=== PATIENT | male | born 2000 | race Caucasian/White ===

== ENCOUNTER 2025-03-07 19:12 | Observation (INO) ==
[2025-03-07] MEDS: ONDANSETRON INJ 2 MG/ML 2 ML VIAL IV STA ×2 (19:38→23:27)
[2025-03-07] MEDS: SODIUM CHLORIDE 0.9% 1,000 ML IV STA (19:38)
--- NOTE | 2025-03-07 19:42 | Emergency Department Note ---
Impression & Plan Right ureteral stone, Right lower quadrant abdominal pain, DRE (acute kidney injury) ED Provider Note NAME: CHRISTINA LEÓN AGE: 24 SEX: M : 2000 ARRIVES VIA: Walk-In INFORMANT: Patient, ED PROVIDER(S): Adria Leonardo DO CHIEF COMPLAINT: Abdominal pain HPI: The patient is a 24-year-old male who presents to the emergency room for CAT scan of his abdomen. Patient started having right-sided abdominal pain over the last 24 hours. He does have a history of ureteral calculus in the past. The patient denies having any vomiting. He said nausea. He went to an urgent care and was sent to the department for CAT scan. ROS: See above HPI for pertinent positives & negatives. A total of 10 systems reviewed and were otherwise negative. PAST MEDICAL HISTORY: See Below PAST SURGICAL HISTORY: See Below FAMILY HISTORY: See Below SOCIAL HISTORY: See Below HOME MEDICATIONS: See Below ALLERGIES: See Below VITALS: See Below PHYSICAL EXAMINATION: GENERAL: Patient is awake alert in no acute distress patient is resting comfortably and showing no signs of anxiety EYES: The conjunctivae are clear. The pupils are round and reactive. EARS, NOSE, MOUTH AND THROAT: The nose is without any evidence of any deformity. Mucous membranes are moist. Tongue is midline. NECK: The neck is nontender and supple. RESPIRATORY: Normal respiratory effort is noted there is no evidence of wheezing rhonchi or rales CARDIOVASCULAR: Regular rate and rhythm noted there no murmurs rubs or gallops normal S1 normal S2. GASTROINTESTINAL: The abdomen is distended. There is diffuse tenderness to palpation with guarding in the right lower quadrant. MUSCULOSKELETAL/EXTREMITIES: There is no evidence of gross deformity full range of motion is noted in the hips and shoulders. SKIN: There is no obvious evidence of any rash. There are no petechiae, pallor or cyanosis noted. NEUROLOGIC: Patient is awake alert and oriented x3 MEDICAL DECISION MAKING: The patient is a 24-year-old male who presented to the emergency department for an evaluation of right-sided abdominal pain. The patient was recently diagnosed with a kidney stone. He was pain-free until today. He went to an urgent care and was sent to the emergency department with concerns of appendicitis. I discussed patient's laboratory and radiographic studies with him. CT showed signs of a distal ureteral calculus which I suspect is causing his pain. He was treated with multiple rounds of pain medication but still had ongoing pain. For this reason I would discussed his condition with the on-call hospitalist. The patient's urinalysis does not appear to be consistent with infection. Laboratory studies otherwise were reassuring. Triage Nursing notes reviewed. Prior medical records reviewed Vital Signs: reviewed and remarkable for elevate blood pressure. Differential diagnosis: Etiologies such as appendicitis, diverticulitis, obstruction, inflammatory bowel disease, renal colic, PUD, biliary pathology, pancreatitis, mesenteric ischemia, aortic pathology, infections, genitourinary, UTI, perforated viscus, as well as others were entertained. ER treatment provided: See below Diagnostics interpreted by me: ECG: none Cardiac Monitoring: An order was placed for continuous cardiac monitoring. The monitor shows a rate of 80 bpm with sinus rhythm. Laboratory studies: As stated above and show below. Imaging studies: See below. Radiographic imaging was reviewed by myself Consultation(s): Dr. Medrano who is on-call for the [facility] hospitalist group was notified about the patient. Past Med/Surg History Problem List (Updated 03/07/25 @ 23:21 by Adria Leonardo DO) DRE (acute kidney injury) (Acute) Right lower quadrant abdominal pain (Acute) Right ureteral stone (Acute) Social History Smoking Status: Never smoker Feels Safe at Home: Yes Allergies Allergies Allergy/AdvReac Type Severity Reaction Status Date / Time amoxicillin Allergy Mild Verified 03/06/25 11:05 Home Meds Home Medications Medication Instructions Recorded Confirmed bupropion HCl 75 mg tablet 75 mg PO TID 03/06/25 03/06/25 lisdexamfetamine 40 mg capsule 40 mg PO DAILY 03/06/25 03/06/25 (Vyvanse) sertraline 200 mg capsule 200 mg PO DAILY 03/06/25 03/06/25 Results & Data (ED) Vital Signs Vital Signs - 24 hr 03/07/25 19:18 03/07/25 19:32 03/07/25 19:33 Temperature 36.7 C Temperature Source Oral Pulse Rate 91 H Pulse Rate [Right Finger] 83 Pulse Rate from SpO2 Sensor Pulse Rhythm [Right Finger] Regular Pulse Strength [Right Finger] Normal Respiratory Rate 16 18 Respiratory Effort / Characteristics Non-Labored Spontaneous Non-Labored Respiratory Depth Normal Normal Respiratory Pattern Regular Regular Blood Pressure 169/110 H Blood Pressure [Left Arm] 172/118 H Blood Pressure Mean 129 Blood Pressure Mean [Left Arm] 136 Blood Pressure Position [Left Arm] Sitting Pulse Oximetry 96 98 96 Oxygen Delivery Method Room Air Room Air Room Air Sepsis Recent Fever Within 48 Hours No Sepsis New/Unexplained Change in Mental Status N/A Sepsis Action Taken by Nursing No Action Required 03/07/25 20:01 03/07/25 20:30 03/07/25 21:00 Temperature Temperature Source Pulse Rate 80 84 70 Pulse Rate [Right Finger] Pulse Rate from SpO2 Sensor 85 69 Pulse Rhythm [Right Finger] Pulse Strength [Right Finger] Respiratory Rate 19 13 Respiratory Effort / Characteristics Respiratory Depth Respiratory Pattern Blood Pressure 169/116 H 196/116 H Blood Pressure [Left Arm] Blood Pressure Mean 141 142 Blood Pressure Mean [Left Arm] Blood Pressure Position [Left Arm] Pulse Oximetry 96 97 Oxygen Delivery Method Sepsis Recent Fever Within 48 Hours Sepsis New/Unexplained Change in Mental Status Sepsis Action Taken by Nursing 03/07/25 21:24 03/07/25 21:33 03/07/25 22:00 Temperature Temperature Source Pulse Rate 72 86 Pulse Rate [Right Finger] 89 Pulse Rate from SpO2 Sensor 72 86 Pulse Rhythm [Right Finger] Regular Pulse Strength [Right Finger] Respiratory Rate 18 16 15 Respiratory Effort / Characteristics Respiratory Depth Normal Respiratory Pattern Blood Pressure 170/105 H 149/91 H Blood Pressure [Left Arm] 170/105 H Blood Pressure Mean 126 108 Blood Pressure Mean [Left Arm] 126 Blood Pressure Position [Left Arm] Pulse Oximetry 96 97 96 Oxygen Delivery Method Room Air Sepsis Recent Fever Within 48 Hours Sepsis New/Unexplained Change in Mental Status Sepsis Action Taken by Nursing 03/07/25 22:03 Temperature Temperature Source Pulse Rate 80 Pulse Rate [Right Finger] Pulse Rate from SpO2 Sensor 76 Pulse Rhythm [Right Finger] Pulse Strength [Right Finger] Respiratory Rate 15 Respiratory Effort / Characteristics Respiratory Depth Respiratory Pattern Blood Pressure 149/91 H Blood Pressure [Left Arm] Blood Pressure Mean 110 Blood Pressure Mean [Left Arm] Blood Pressure Position [Left Arm] Pulse Oximetry 97 Oxygen Delivery Method Sepsis Recent Fever Within 48 Hours Sepsis New/Unexplained Change in Mental Status Sepsis Action Taken by [facility] Medications Current Medication List: was personally reviewed by me Laboratory Data Attestation: I reviewed the patient's lab results. 03/07/25 19:33 03/07/25 19:33 Lab Results 03/07/25 Range/Units 19:33 WBC 9.75 (4.8-10.8) K/ul RBC 5.19 (4.70-6.10) M/uL Hgb 15.9 (14.0-18.0) g/dl Hct 45.5 (42.0-52.0) % MCV 87.7 (80.0-100.0) fL MCH 30.6 (25.0-34.0) pg MCHC 34.9 (32.0-36.0) g/dL RDW Std Deviation 38.1 (36.4-46.3) fL RDW Coeff of Leanne 11.9 (11.5-14.5) % Plt Count 228 (130-400) K/uL MPV 11.3 (9.4-12.4) fL Immature Gran % (Auto) 0.2 % Neut % (Auto) 78.2 % Lymph % (Auto) 9.7 % [place] % (Auto) 10.5 % Eos % (Auto) 1.1 % Baso % (Auto) 0.3 % Neut # (Auto) 7.62 H (1.40-6.50) K/uL Lymph # (Auto) 0.95 L (1.20-3.40) K/uL [place] # (Auto) 1.02 H (0.11-0.59) K/uL Eos # (Auto) 0.11 (0.00-0.50) K/uL Baso # (Auto) 0.03 (0.00-0.20) K/uL Immature Gran # (Auto) 0.02 (0.01-0.20) K/uL Sodium 139 (136-145) mmol/L Potassium 3.9 (3.5-5.1) mmol/L Chloride 103 (98-107) mmol/L Carbon Dioxide 26 (21-32) mmol/L Anion Gap 10 (3-11) BUN 18 (6-23) mg/dl Creatinine 1.58 H (0.6-1.4) mg/dl Est Cr Clr Drug Dosing 88.8 ml/min eGFR 62.64 BUN/Creatinine Ratio 11.4 (10-20) Glucose 112 H (70-99(Fasting)) mg/dl Calcium 9.7 (8.6-10.3) mg/dl Total Bilirubin 0.7 (0.2-1.0) mg/dl AST 31 (13-39) U/L ALT 38 (7-52) U/L Alkaline Phosphatase 73 (34-104) U/L Total Protein 8.4 H (6.0-8.3) gm/dl Albumin 5.2 H (3.4-5.0) gm/dl Globulin 3.2 (2.5-4.0) gm/dl Albumin/Globulin Ratio 1.6 (0.9-2) Lipase 19 (11-82) U/L Urine Color Yellow Urine Appearance Clear (Clear) Urine pH 7.0 (4.5-7.5) Ur Specific [place] 1.023 (1.000-1.030) Urine Protein Negative (Negative) Urine Glucose (UA) Negative (Negative) Urine Ketones Negative (Negative) Urine Blood Negative (Negative) Urine Nitrite Negative (Negative) Urine Bilirubin Negative (Negative) Urine Urobilinogen Negative (Negative) Ur Leukocyte Esterase Negative (Negative) Urine Comment Administered Medications Discontinued Medications Sodium Chloride (Nss) 1,000 mls @ 999 mls/hr IV .Q1H1M STA Stop: 03/07/25 20:32 Last Infusion: 03/07/25 21:02 Dose: Infused Documented By: Admin: 03/07/25 19:38 Dose: 999 mls/hr Documented By: MILLI [facility] 1,000 mg in 100 mls @ 400 mls/hr IV NOW STA Stop: 03/07/25 20:00 Last Infusion: 03/07/25 20:30 Dose: Infused Documented By: Admin: 03/07/25 19:50 Dose: 400 mls/hr Documented By: MILLI Ioversol (Optiray 320 100ml) 90 ml IV ONCE ONE Stop: 03/07/25 20:17 Last Admin: 03/07/25 20:16 Dose: 90 ml Documented By: SUSAN Morphine Sulfate (Morphine Sulfate 4 Mg/Ml 1 Ml Carp\Vial) 4 mg IV NOW STA Stop: 03/07/25 19:47 Last Admin: 03/07/25 19:50 Dose: 4 mg Documented By: MILLI Morphine Sulfate (Morphine Sulfate 4 Mg/Ml 1 Ml Carp\Vial) 4 mg IV NOW STA Stop: 03/07/25 21:27 Last Admin: 03/07/25 21:31 Dose: 4 mg Documented By: CADENCE Ondansetron HCl (Ondansetron Inj 2 Mg/Ml 2 Ml Vial) 4 mg IV NOW STA Stop: 03/07/25 19:33 Last Admin: 03/07/25 19:38 Dose: 4 mg Documented By: MILLI Imaging Data Attestation: I personally reviewed and interpreted this imaging study as follows: My Impression: CT of the abdomen and pelvis was obtained in the emergency department. My interpretation is no free air or signs of definite bowel obstruction, final report below. Radiologist's Impression: Abdomen/Pelvis CT 03/07/25 19:32 Exam(s): CT ABDOMEN + PELVIS With Contrast IV Amt: 90 cc opti 320 EXAM: CT Abdomen and Pelvis With Intravenous Contrast CLINICAL HISTORY: Reason for exam: RLQ pain. TECHNIQUE: Axial computed tomography images of the abdomen and pelvis with intravenous contrast. CTDI is 27 mGy and DLP is 1544 mGy-cm. Automated exposure control was utilized for the study. A dose lowering technique was utilized adhering to the principles of ALARA. CONTRAST: Patient received 90 cc opti 320 of IV contrast COMPARISON: CT abdomen/pelvis on 02/20/2025 FINDINGS: Lung bases: Unremarkable. No mass. No consolidation. ABDOMEN: Liver: Unremarkable. No mass. Gallbladder and bile ducts: Unremarkable. No calcified stones. No ductal dilation. Pancreas: Unremarkable. No mass. No ductal dilation. Spleen: Mild splenomegaly. Adrenals: Unremarkable. No mass. Kidneys and ureters: 3 mm stone in the distal right ureter. Mild right hydroureteronephrosis. Hypoenhancement of the right kidney. Excreting contrast in the left renal collecting system. No hydronephrosis. Stomach and bowel: Evaluation of the stomach is limited by underdistention. No mucosal thickening. PELVIS: Appendix: Normal appendix. Bladder: Unremarkable. No mass. Reproductive: Unremarkable as visualized. ABDOMEN and PELVIS: Intraperitoneal space: Unremarkable. No free air. No significant fluid collection. Bones/joints: No acute fracture. No dislocation. Soft tissues: Bilateral fat containing inguinal hernias. Small fat containing umbilical hernia. Vasculature: Unremarkable. No abdominal aortic aneurysm. Lymph nodes: Unremarkable. No enlarged lymph nodes. IMPRESSION: 3 mm stone in the distal right ureter. Mild right hydroureteronephrosis. Hypoenhancement of the right kidney. Electronically signed by: Jesus Willoughby M.D. 03/07/25 23:12 PM Discharge Plan Visit Data Chief Complaint: Abdominal Pain Stated Complaint: RT LOWER ABD PAIN ED Provider: Adria Leonardo Discharge Problem: Right ureteral stone, Right lower quadrant abdominal pain, DRE (acute kidney injury) Patient Disposition: Being Evaluated by Hospitalist Condition: Good Forms Stand Alone Forms: [employer] Prescriptions Prescriptions: No Action sertraline 200 mg capsule 200 mg PO DAILY bupropion HCl 75 mg tablet 75 mg PO TID Rx Instructions: administer 6 hours apart lisdexamfetamine [Vyvanse] 40 mg capsule 40 mg PO DAILY Referrals Referrals: PCP,NO [Primary Care Provider] -
[2025-03-07 19:48] LABS: Hematocrit (blood only) 45.5 % (42.0-52.0); Hemoglobin 15.9 g/dl (14.0-18.0); Immature Granulocytes # (auto) 0.02 K/uL (0.01-0.20); Immature Granulocytes % (auto) 0.2 %; Mean Corpuscular Hemoglobin 30.6 pg (25.0-34.0); Mean Corpuscular Volume 87.7 fL (80.0-100.0); Platelet Count 228 K/uL (130-400); RDW Standard Deviation 38.1 fL (36.4-46.3); Red Blood Count 5.19 M/uL (4.70-6.10); White Blood Count 9.75 K/ul (4.8-10.8)
[2025-03-07] MEDS: ACETAMINOPHEN 1,000 MG/100 ML VIAL IV STA (19:50)
[2025-03-07] MEDS: MoRPHine SULFATE 4 MG/ML 1 ML CARP\\VIAL IV STA ×3 (19:50→23:26)
[2025-03-07 19:51] LABS: Appearance Urine Clear (Clear); Glucose Urine UA Negative (Negative)
[2025-03-07 20:04] LABS: Alanine Aminotransferase 38.0 U/L (7-52); Albumin Globulin Ratio 1.6 (0.9-2); Alkaline Phosphatase 73.0 U/L (34-104); Anion Gap 10.0 (3-11); Bilirubin,Total 0.7 mg/dl (0.2-1.0); Blood Urea Nitrogen 18.0 mg/dl (6-23); Calcium 9.7 mg/dl (8.6-10.3); Carbon Dioxide 26.0 mmol/L (21-32); Chloride 103.0 mmol/L (98-107); Creatinine Clr Calc Pharmacy 88.8 ml/min; Globulin 3.2 gm/dl (2.5-4.0); Glucose 112.0 mg/dl (70-99(Fasting)); Lipase 19.0 U/L (11-82); Potassium 3.9 mmol/L (3.5-5.1); Sodium 139.0 mmol/L (136-145); Total Protein 8.4 gm/dl (6.0-8.3)
[2025-03-07] MEDS: OPTIRAY 320 100ml IV ONE (20:16)
--- NOTE | 2025-03-07 23:13 | CT Scan Report ---
Exam(s): CT ABDOMEN + PELVIS With Contrast IV Amt: 90 cc opti 320 EXAM: CT Abdomen and Pelvis With Intravenous Contrast CLINICAL HISTORY: Reason for exam: RLQ pain. TECHNIQUE: Axial computed tomography images of the abdomen and pelvis with intravenous contrast. CTDI is 27 mGy and DLP is 1544 mGy-cm. Automated exposure control was utilized for the study. A dose lowering technique was utilized adhering to the principles of ALARA. CONTRAST: Patient received 90 cc opti 320 of IV contrast COMPARISON: CT abdomen/pelvis on 02/20/2025 FINDINGS: Lung bases: Unremarkable. No mass. No consolidation. ABDOMEN: Liver: Unremarkable. No mass. Gallbladder and bile ducts: Unremarkable. No calcified stones. No ductal dilation. Pancreas: Unremarkable. No mass. No ductal dilation. Spleen: Mild splenomegaly. Adrenals: Unremarkable. No mass. Kidneys and ureters: 3 mm stone in the distal right ureter. Mild right hydroureteronephrosis. Hypoenhancement of the right kidney. Excreting contrast in the left renal collecting system. No hydronephrosis. Stomach and bowel: Evaluation of the stomach is limited by underdistention. No mucosal thickening. PELVIS: Appendix: Normal appendix. Bladder: Unremarkable. No mass. Reproductive: Unremarkable as visualized. ABDOMEN and PELVIS: Intraperitoneal space: Unremarkable. No free air. No significant fluid collection. Bones/joints: No acute fracture. No dislocation. Soft tissues: Bilateral fat containing inguinal hernias. Small fat containing umbilical hernia. Vasculature: Unremarkable. No abdominal aortic aneurysm. Lymph nodes: Unremarkable. No enlarged lymph nodes. IMPRESSION: 3 mm stone in the distal right ureter. Mild right hydroureteronephrosis. Hypoenhancement of the right kidney. Electronically signed by: Jesus Willoughby M.D. 03/07/25 23:12 PM
[2025-03-07] MEDS: KETOROLAC TROMETHAMINE 15 MG/ML VIAL IV ONE (23:26)
--- NOTE | 2025-03-07 23:39 | History & Physical Report ---
Date of Service March 07, 2025 Assessment & Plan (1) Right ureteral stone: (2) DRE (acute kidney injury): (3) Anxiety and depression: (4) Elevated blood pressure reading: Plan 24yo male presenting with right sided abdominal pain. Found with obstructing stone in the right distal ureter - 3mm with hydroureteronephrosis. Elevated Cr=1.58, unknown baseline #Right ureteral stone -Admit to medical -Keep NPO -LR at 125mL/hr x 2L ordered -Flomax 0.4mg po now and daily -Urine strainer -Tylenol and Morphine PRN pain -Zofran PRN nausea -PRN bowel regimen in place -Urology consultation appreciated #DRE - patient with elevated Cr=1.58, unknown baseline. -Avoid nephrotoxic agents -LR -Repeat chemistry in AM -Should be followed as an outpatient - patient reports that his blood pressure is high outpatient as well #Anxiety/Depression/Mental Health -Continue home medications - Bupropion, Vyvanse and Sertraline #Elevated blood pressure reading -Pain control as above -Continue to monitor History of Present Illness Chief Complaint: right abdominal pain Primary Care Provider: NO PCP Josh Correia is a pleasant 24yo male with history of elevated blood pressure presenting with right sided abdominal pain. Patient initially presented to [facility] 2 weeks ago with right sided abdominal pain. He was diagnosed with a kidney stone and was ultimately discharged with pain medication and Flomax. He reports taking these medications - symptoms largely resolved but he would occasionally experience some intermittent discomfort. Last night he developed more severe pain in the right lower abdomen and mid ab domen. Pain constant. Intermittent nausea. Some sweats as well. Denies fever, chest pain, cough, SOB. Normal urination now with no difficulty. No additional complaints at this time. In the ER he is afebrile, HD stable ER Course: NSS Zofran Morphine Tylenol Allergies Allergy/AdvReac Type Severity Reaction Status Date / Time amoxicillin Allergy Mild Verified 03/06/25 11:05 Home Medications Medication Instructions Recorded Confirmed Type bupropion HCl 75 mg tablet 75 mg PO TID 03/06/25 03/07/25 History lisdexamfetamine 40 mg capsule 40 mg PO DAILY 03/06/25 03/07/25 History (Vyvanse) sertraline 200 mg capsule 200 mg PO DAILY 03/06/25 03/07/25 History Past Med/Surg History Problem List (Updated 03/07/25 @ 23:58 by Bonnie Medrano DO) Elevated blood pressure reading Anxiety and depression DRE (acute kidney injury) (Acute) Right lower quadrant abdominal pain (Acute) Right ureteral stone (Acute) Social History Smoking Status: Never smoker Feels Safe at Home: Yes Review of Systems Review of Systems: All systems reviewed & are unremarkable except as noted in HPI & below Physical Exam Physical Exam: General: patient resting comfortably, NAD, non-toxic in appearance, AA&O x 4 Skin: warm, dry, intact, no rashes or lesions HEENT: NC/AT, PERRL, EOMI, anicteric sclera, conjunctiva without injection, external ear normal to inspection and nontender, nares patent, moist mucus membranes, dentition intact, no oropharyngeal lesions, neck supple, trachea midline, no LAD, no thyromegaly, no JVD Heart: +S1/S2, regular, no m/r/g Lungs: equal air entry bilaterally, no rales/rhonchi/wheezes Abd: +BS, soft, NT/ND, no masses/organomegaly/ascites, comfortable after receiving pain medication Ext: warm, 2+ pulses in UE/LE bilaterally, no clubbing/cyanosis or edema Neuro: nonfocal, patient AA&O x 4, speech intact, no facial droop, moving all extremities on command with equal strength 5/5 Results & Data Results & Data Vital Signs (Past 12 Hours) Vital Signs Temp Pulse Pulse Resp BP BP Pulse Ox 03/07/25 23:00 74 18 150/117 H 95 03/07/25 22:03 80 15 149/91 H 97 03/07/25 22:00 86 15 149/91 H 96 03/07/25 21:33 89 16 170/105 H 97 03/07/25 21:24 72 18 170/105 H 96 03/07/25 21:00 70 13 196/116 H 97 03/07/25 20:30 84 19 169/116 H 96 03/07/25 20:01 80 03/07/25 19:33 83 18 172/118 H 96 03/07/25 19:32 98 03/07/25 19:18 36.7 C 91 H 16 169/110 H 96 O2 Del Method 03/07/25 23:00 Room Air 03/07/25 22:03 03/07/25 22:00 03/07/25 21:33 Room Air 03/07/25 21:24 03/07/25 21:00 03/07/25 20:30 03/07/25 20:01 03/07/25 19:33 Room Air 03/07/25 19:32 Room Air 03/07/25 19:18 Room Air Laboratory Results Laboratory Results WBC 9.75 K/ul (4.8-10.8) 03/07/25 19:33 RBC 5.19 M/uL (4.70-6.10) 03/07/25 19:33 Hgb 15.9 g/dl (14.0-18.0) 03/07/25 19:33 Hct 45.5 % (42.0-52.0) 03/07/25 19:33 MCV 87.7 fL (80.0-100.0) 03/07/25 19:33 MCH 30.6 pg (25.0-34.0) 03/07/25 19:33 MCHC 34.9 g/dL (32.0-36.0) 03/07/25 19:33 RDW Std Deviation 38.1 fL (36.4-46.3) 03/07/25 19:33 RDW Coeff of Leanne 11.9 % (11.5-14.5) 03/07/25 19:33 Plt Count 228 K/uL (130-400) 03/07/25 19:33 MPV 11.3 fL (9.4-12.4) 03/07/25 19:33 Immature Gran % (Auto) 0.2 % 03/07/25 19:33 Neut % (Auto) 78.2 % 03/07/25 19:33 Lymph % (Auto) 9.7 % 03/07/25 19:33 [place] % (Auto) 10.5 % 03/07/25 19:33 Eos % (Auto) 1.1 % 03/07/25 19:33 Baso % (Auto) 0.3 % 03/07/25 19:33 Neut # (Auto) 7.62 K/uL (1.40-6.50) H 03/07/25 19:33 Lymph # (Auto) 0.95 K/uL (1.20-3.40) L 03/07/25 19:33 [place] # (Auto) 1.02 K/uL (0.11-0.59) H 03/07/25 19:33 Eos # (Auto) 0.11 K/uL (0.00-0.50) 03/07/25 19:33 Baso # (Auto) 0.03 K/uL (0.00-0.20) 03/07/25 19:33 Immature Gran # (Auto) 0.02 K/uL (0.01-0.20) 03/07/25 19:33 Sodium 139 mmol/L (136-145) 03/07/25 19:33 Potassium 3.9 mmol/L (3.5-5.1) 03/07/25 19:33 Chloride 103 mmol/L (98-107) 03/07/25 19:33 Carbon Dioxide 26 mmol/L (21-32) 03/07/25 19:33 Anion Gap 10 (3-11) 03/07/25 19:33 BUN 18 mg/dl (6-23) 03/07/25 19:33 Creatinine 1.58 mg/dl (0.6-1.4) H 03/07/25 19:33 Est Cr Clr Drug Dosing 88.8 ml/min 03/07/25 19:33 eGFR 62.64 03/07/25 19:33 BUN/Creatinine Ratio 11.4 (10-20) 03/07/25 19:33 Glucose 112 mg/dl (70-99(Fasting)) H 03/07/25 19:33 Calcium 9.7 mg/dl (8.6-10.3) 03/07/25 19:33 Total Bilirubin 0.7 mg/dl (0.2-1.0) 03/07/25 19:33 AST 31 U/L (13-39) 03/07/25 19:33 ALT 38 U/L (7-52) 03/07/25 19:33 Alkaline Phosphatase 73 U/L (34-104) 03/07/25 19:33 Total Protein 8.4 gm/dl (6.0-8.3) H 03/07/25 19:33 Albumin 5.2 gm/dl (3.4-5.0) H 03/07/25 19:33 Globulin 3.2 gm/dl (2.5-4.0) 03/07/25 19:33 Albumin/Globulin Ratio 1.6 (0.9-2) 03/07/25 19:33 Lipase 19 U/L (11-82) 03/07/25 19:33 Urine Color Yellow 03/07/25 19:33 Urine Appearance Clear (Clear) 03/07/25 19:33 Urine pH 7.0 (4.5-7.5) 03/07/25 19:33 Ur Specific [place] 1.023 (1.000-1.030) 03/07/25 19:33 Urine Protein Negative (Negative) 03/07/25 19:33 Urine Glucose (UA) Negative (Negative) 03/07/25 19:33 Urine Ketones Negative (Negative) 03/07/25 19:33 Urine Blood Negative (Negative) 03/07/25 19:33 Urine Nitrite Negative (Negative) 03/07/25 19:33 Urine Bilirubin Negative (Negative) 03/07/25 19:33 Urine Urobilinogen Negative (Negative) 03/07/25 19:33 Ur Leukocyte Esterase Negative (Negative) 03/07/25 19:33 Urine Comment 03/07/25 19:33 Impressions Abdomen/Pelvis CT 03/07/25 19:32 Exam(s): CT ABDOMEN + PELVIS With Contrast IV Amt: 90 cc opti 320 EXAM: CT Abdomen and Pelvis With Intravenous Contrast CLINICAL HISTORY: Reason for exam: RLQ pain. TECHNIQUE: Axial computed tomography images of the abdomen and pelvis with intravenous contrast. CTDI is 27 mGy and DLP is 1544 mGy-cm. Automated exposure control was utilized for the study. A dose lowering technique was utilized adhering to the principles of ALARA. CONTRAST: Patient received 90 cc opti 320 of IV contrast COMPARISON: CT abdomen/pelvis on 02/20/2025 FINDINGS: Lung bases: Unremarkable. No mass. No consolidation. ABDOMEN: Liver: Unremarkable. No mass. Gallbladder and bile ducts: Unremarkable. No calcified stones. No ductal dilation. Pancreas: Unremarkable. No mass. No ductal dilation. Spleen: Mild splenomegaly. Adrenals: Unremarkable. No mass. Kidneys and ureters: 3 mm stone in the distal right ureter. Mild right hydroureteronephrosis. Hypoenhancement of the right kidney. Excreting contrast in the left renal collecting system. No hydronephrosis. Stomach and bowel: Evaluation of the stomach is limited by underdistention. No mucosal thickening. PELVIS: Appendix: Normal appendix. Bladder: Unremarkable. No mass. Reproductive: Unremarkable as visualized. ABDOMEN and PELVIS: Intraperitoneal space: Unremarkable. No free air. No significant fluid collection. Bones/joints: No acute fracture. No dislocation. Soft tissues: Bilateral fat containing inguinal hernias. Small fat containing umbilical hernia. Vasculature: Unremarkable. No abdominal aortic aneurysm. Lymph nodes: Unremarkable. No enlarged lymph nodes. IMPRESSION: 3 mm stone in the distal right ureter. Mild right hydroureteronephrosis. Hypoenhancement of the right kidney. Electronically signed by: Jesus Willoughby M.D. 03/07/25 23:12 PM PG Care Time/CCT Total # of Minutes Spent Total Time Spent with Patient: Total time spent is greater than 50% in coordination of care (as documented) at patient's floor/unit and/or counseling patient: Coding Level of Care Code 39410 INT INP/OBS CARE 3/75MIN Diagnoses Right ureteral stone N20.1 DRE (acute kidney injury) N17.9 Anxiety and depression F41.9; F32.A Elevated blood pressure reading R03.0
[2025-03-08] MEDS ORDERED: DOCUSATE SODIUM 100 MG CAP PO PRN (00:17)
[2025-03-08] MEDS ORDERED: POLYETHYLENE (MIRALAX) 17 GM PACK PO PRN (00:17)
[2025-03-08] MEDS ORDERED: ONDANSETRON INJ 2 MG/ML 2 ML VIAL IV PRN (00:17)
[2025-03-08] MEDS ORDERED: MoRPHine SULFATE 2 MG/ML CARP IV PRN (00:17)
[2025-03-08] MEDS: LACTATED RINGER'S 1,000 ML IV SCH ×2 (00:49→15:59)
[2025-03-08] MEDS: TAMSULOSIN HCL 0.4 MG CAP PO ONE (00:50)
--- NOTE | 2025-03-08 01:01 | Urology Consultation ---
Date of Consultation March 08, 2025 Assessment & Plan (1) Right ureteral stone: The patient has been admitted on the hospitalist service. From a urologic perspective we recommend the following: It appears that the patient has a 3 mm kidney stone in the distal right ureter. Analgesics to be provided Antiemetics to be provided He should be hydrated IV fluids Flomax has been initiated for expulsive therapy Hopefully kidney stone 3 mm in size will pass on its own particularly since it is in the distal ureter. Will keep the patient n.p.o. for the present time and he will be reevaluated by [facility] team on 03/08/2025 and a determination be made if patient requires cystoscopy At the time my exam the patient was normotensive without tachycardia or fever and was nontoxic-appearing and therefore I feel conservative measures are warranted at this time Additional recommendations be forthcoming based on his clinical course as unfolds History of Present Illness Reason for Consultation: Kidney stone Attending Physician: Bonnie Medrano, History of Present Illness This is a 24-year-old male who presented to the emergency department secondary to right-sided abdominal pain. Patient says that he was seen at the [facility] approximately 2 weeks ago with right sided abdominal pain where he was diagnosed with a kidney stone and ultimately discharged with Flomax and analgesics. Patient says that his symptoms for the most part resolved but he was having some intermittent discomfort. Over the past 24 hours however the patient developed some more severe pain in the right lower abdomen with some intermittent nausea and some sweats. He denies any fevers, shakes, or chills. He notes that he is not having any difficulty urinating. He notes that he has never had a kidney stone prior to this kidney stone. Since arrival to the hospital the patient has had labs and imaging which I indep endently reviewed. CT scan of the abdomen pelvis showed the patient had a 3 oh millimeter kidney stone in the distal right ureter resulting in mild hydronephrosis. Labs including CBC were white blood cell count, hemoglobin, hematocrit, and platelet count were normal. Chemistry profile showed sodium and potassium were normal. His BUN was normal but his creatinine was slightly elevated at 1.5. Urinalysis was not indicative of infection. At the time of my interview the patient notes that his pain had subsided and he is resting comfortably in bed in no distress. Allergies Allergy/AdvReac Type Severity Reaction Status Date / Time amoxicillin Allergy Mild Verified 03/06/25 11:05 Home Medications Medication Instructions Recorded Confirmed Type bupropion HCl 75 mg tablet 75 mg PO TID 03/06/25 03/07/25 History lisdexamfetamine 40 mg capsule 40 mg PO DAILY 03/06/25 03/07/25 History (Shaun) sertraline 200 mg capsule 200 mg PO DAILY 03/06/25 03/07/25 History Patient History Social History Smoking Status: Never smoker Do You Dip or Chew Tobacco: No; Hx Alcohol Use: Yes Alcohol type: beer Hx Substance Use: Yes Last Used Substance: Days (ago) Preferred Language: Setswana Communication Ability: 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 Beliefs That Will Affect Care: None Current Living Situation: Alone Feels Safe at Home: Yes Safety Concerns: Feels Safe At This Time Assistive Devices: Glasses Review of Systems Review of Systems: All systems reviewed & are unremarkable except as noted in HPI & below Physical Exam Constitutional: WD/WN, vitals as above Eyes: no conjunctival abnormality ENMT: Ears: no hearing impairment and no external ear abnormality Mouth: no oropharynx abnormality Neck: trachea midline Respiratory: normal respiratory effort; no labored breathing Cardiovascular: Rate/Rhythm: regular rate and regular rhythm Gastrointestinal (Abdomen): At the time of my exam the patient's abdomen was soft without distention. There is minimal to no pain with palpation. Musculoskeletal: No calf tenderness Skin: no rashes Neurologic: moves all extremities Psychiatric: A+Ox3, euthymic affect Results & Data Vital Signs (Past 12 Hours) Vital Signs Temp Pulse Pulse Resp BP BP Pulse Ox 03/08/25 00:27 36.7 C 87 18 152/109 H 96 03/07/25 23:59 159/114 H 03/07/25 23:00 74 18 150/117 H 95 03/07/25 22:03 80 15 149/91 H 97 03/07/25 22:00 86 15 149/91 H 96 03/07/25 21:33 89 16 170/105 H 97 03/07/25 21:24 72 18 170/105 H 96 03/07/25 21:00 70 13 196/116 H 97 03/07/25 20:30 84 19 169/116 H 96 03/07/25 20:01 80 03/07/25 19:33 83 18 172/118 H 96 03/07/25 19:32 98 03/07/25 19:18 36.7 C 91 H 16 169/110 H 96 O2 Del Method 03/08/25 00:27 Room Air 03/07/25 23:59 03/07/25 23:00 Room Air 03/07/25 22:03 03/07/25 22:00 03/07/25 21:33 Room Air 03/07/25 21:24 03/07/25 21:00 03/07/25 20:30 03/07/25 20:01 03/07/25 19:33 Room Air 03/07/25 19:32 Room Air 03/07/25 19:18 Room Air PG Care Time/CCT Total # of Minutes Spent Total Time Spent with Patient: Total time spent is greater than 50% in coordination of care (as documented) at patient's floor/unit and/or counseling patient: Coding Level of Care Code 19423 IN/OBS CONSULT LVL 5,80M Diagnoses Right ureteral stone N20.1
[2025-03-08] MEDS: ACETAMINOPHEN 1,000 MG/100 ML VIAL IV PRN (08:29)
[2025-03-08] MEDS: SERTRALINE HCL 100 MG TABLET PO SCH (09:27)
[2025-03-08] MEDS: TAMSULOSIN HCL 0.4 MG CAP PO SCH (09:28)
[2025-03-08 10:39] LABS: Hematocrit (blood only) 40.5 % (42.0-52.0); Hemoglobin 13.8 g/dl (14.0-18.0); Mean Corpuscular Hemoglobin 30.1 pg (25.0-34.0); Mean Corpuscular Volume 88.2 fL (80.0-100.0); Platelet Count 180 K/uL (130-400); RDW Standard Deviation 39.1 fL (36.4-46.3); Red Blood Count 4.59 M/uL (4.70-6.10); White Blood Count 6.64 K/ul (4.8-10.8)
[2025-03-08 10:58] LABS: Anion Gap 6.0 (3-11); Blood Urea Nitrogen 14.0 mg/dl (6-23); Calcium 9.2 mg/dl (8.6-10.3); Carbon Dioxide 28.0 mmol/L (21-32); Chloride 102.0 mmol/L (98-107); Creatinine Clr Calc Pharmacy 94.2 ml/min; Glucose 104.0 mg/dl (70-99(Fasting)); Potassium 3.8 mmol/L (3.5-5.1); Sodium 136.0 mmol/L (136-145)
--- NOTE | 2025-03-08 12:01 | Urology Progress Note ---
Date of Service March 08, 2025 Assessment & Plan (1) Right ureteral stone: Plan: patient seen and discussed imaging reviewed agree with plan as stated and will proceed (2) Hydronephrosis: (3) DRE (acute kidney injury): Plan 24yo male admitted after failing outpatient management and trial of passage and presented with intractable right flank pain secondary to an obstructing 3mm distal right ureteral stone Pain is currently well controlled with medication, denies stone passage He is afebrile and hemodynamically stable Labs today show no leukocytosis and creatinine 1.46 (1.58 on admit) UA without signs of infection or blood We discussed acute stone management with cystoscopy, right stent placement, possible ureteroscopy, laser lithotripsy/stone treatment. Also discussed options for outpatient management including continued trial of passage or arranging outpatient procedure if he does not pass the stone. Risks/benefits of each reviewed. Ureteral stents were discussed as well as postoperative issues and pain management. Expected clinical course reviewed. All questions were answered. He would like to proceed with cystoscopy, right retrograde pyelogram, right ureteral stent placement, possible ureteroscopy, laser lithotripsy/stone treatment depending on findings. Risks and benefits to be reviewed with patient by Dr. Meraz. Keep NPO. Will cover with clindamycin and gentamicin preoperatively. Urology to follow. Admission and Anticipated Discharge Date Admission Date: March 07, 2025 Subjective Pt seen at bedside this morning. NAD. Has been NPO. Pain is currently well controlled. Denies f/c/n/v. Voiding without issue. Denies stone passage. Review of Systems Constitutional: as per Subjective / HPI Genitourinary: + as per Subjective / HPI Physical Exam Constitutional: no acute distress Respiratory: no respiratory distress and no labored breathing Neurologic: moves all extremities and awake Psychiatric: A+Ox3, euthymic affect Results & Data Vital Signs (Past 12 Hours) Vital Signs Temp Pulse Resp BP BP BP Pulse Ox 03/08/25 09:11 144/84 H 03/08/25 07:28 36.8 C 75 20 156/112 H 168/115 H 97 03/08/25 00:27 36.7 C 87 18 152/109 H 96 03/07/25 23:59 159/114 H O2 Del Method 03/08/25 09:11 03/08/25 07:28 Room Air 03/08/25 00:27 Room Air 03/07/25 23:59 PG Care Time/CCT Total # of Minutes Spent Total Time Spent with Patient: Total time spent is greater than 50% in coordination of care (as documented) at patient's floor/unit and/or counseling patient: Coding Level of Care Code 32958 SUB INP/OBS CARE 2/35MIN Diagnoses Right ureteral stone N20.1 Hydronephrosis N13.30 DRE (acute kidney injury) N17.9
[2025-03-08] MEDS ORDERED: ONDANSETRON INJ 2 MG/ML 2 ML VIAL ONE (13:41)
[2025-03-08] MEDS ORDERED: LIDOCAINE 2% 2 ML VIAL/AMP(20MG/ML) INFIL ONE (13:41)
[2025-03-08] MEDS ORDERED: PROPOFOL IV EMULSION 10 MG/ML 20 ML VIAL IV ONE ×3 (13:41→14:31)
[2025-03-08] MEDS ORDERED: DEXAMETHASONE SOD INJ 4 MG/ML VIAL ONE (13:41)
[2025-03-08] MEDS ORDERED: MIDAZOLAM HCL 1 MG/ML 2ML VIAL ONE (13:42)
[2025-03-08] MEDS ORDERED: GENTAMICIN CONSULT ACTIVE PRN (13:49)
--- NOTE | 2025-03-08 14:03 | Anesthesiology Consultation ---
Date of Service March 08, 2025 Assessment & Plan Chart Review Chart Review: Acceptable Risk for Surgery and Patient NOT seen in Pre Admission Testing Consults Requested none ASA ASA2E Proposed Anesthesia Anesthesia Type: General Risk / Benefits Reviewed With: PT / POA / Parent / Guardian, Accepts Plan and Informed Consent Obtained History Surgery Operation Date: 03/08/25 10:10 Proposed Procedures p Cystoscopy Right Retrograde Pyelogram Stent Placement Possible Ureteroscopy Laser Lithotripsy and Stone Treament - Enrique Meraz MD Height/Weight Height: 5 ft 10 in Weight: 102.058 kg Allergies Allergy/AdvReac Type Severity Reaction Status Date / Time amoxicillin Allergy Mild Hives Verified 03/08/25 13:43 Medications Home Medications Medication Instructions Recorded Confirmed Last Taken bupropion HCl 75 mg tablet 75 mg PO TID 03/06/25 03/07/25 Unknown lisdexamfetamine 40 mg capsule 40 mg PO DAILY 03/06/25 03/07/25 Unknown (Vyvanse) sertraline 200 mg capsule 200 mg PO DAILY 03/06/25 03/07/25 Unknown Active Medications Generic Name Dose Route Start Last Admin Trade Name Freq PRN Reason Stop Dose Admin Bupropion HCl 75 mg 03/08/25 09:00 03/08/25 09:27 Bupropion Hcl 75 Mg Tablet PO 04/07/25 08:59 Not Given TID ALEISHA Lactated Ringer's 1,000 mls @ 125 mls/hr 03/08/25 00:17 03/08/25 08:37 Lr IV 03/08/25 16:16 125 mls/hr .Q8H ALEISHA Administration Acetaminophen 1,000 mg in 100 mls @ 400 mls/hr 03/08/25 00:17 03/08/25 08:45 Ofirmev IV 03/11/25 00:16 Infused Q8H PRN Infusion Pain Miscellaneous 1 each 03/08/25 08:00 03/08/25 07:32 Vyvanse 40mg--Order Awaiting Action N/A 04/07/25 07:59 Not Given QS ALEISHA Sertraline HCl 200 mg 03/08/25 09:00 03/08/25 09:27 Sertraline Hcl 100 Mg Tablet PO 04/07/25 08:59 Not Given DAILY ALEISHA Tamsulosin HCl 0.4 mg 03/08/25 09:00 03/08/25 09:28 Tamsulosin Hcl 0.4 Mg Cap PO 04/07/25 08:59 0.4 mg QAM ALEISHA Administration NPO Date Last Intake of Fluids: 03/07/25 Time Last Intake of Fluids: 23:59 Date Last Intake of Solids: 03/07/25 Time Last Intake of Solids: 23:59 Exercise / Class Metabolic Activity II 4-5 Yardwork/Stairs/Walk up hill Past Anesthesia History No Hx of Anesthesia Complications and No Family Hx of Anesthesia Complications History of PONV No Hx of PONV and No Hx of Motion Sickness Social History Smoking Status: Never smoker Do You Dip or Chew Tobacco: No Hx Alcohol Use: Yes Alcohol type: beer alcohol intake frequency: holidays/special occasions only Hx Substance Use: Yes substance use type: marijuana Last Used Substance: Days (ago) Review of Systems ROS Unobtainable: All systems reviewed & are unremarkable except as noted in HPI & below Physical Exam Vital Signs Last Vital Signs Temp 37.0 C 03/08/25 13:36 Pulse 76 03/08/25 13:36 Resp 20 03/08/25 13:36 BP 165/94 H 03/08/25 13:36 Pulse Ox 97 03/08/25 13:36 O2 Del Method Room Air 03/08/25 13:36 Constitutional WD/WN, vitals as above + obese; no acute distress Eyes PERRL, conjunctivae normal, anicteric sclerae ENMT external ear and nose normal, oropharynx normal Mouth: no dentition abnormality Thyromental Distance: > or= 3.5 Finger Breadths Mallampati Class: II Neck trachea midline, no thyromegaly Respiratory normal respiratory effort, lungs clear to auscultation Cardiovascular RRR, no murmur, no edema Musculoskeletal Head/Neck/Chest: normocephalic and head atraumatic Spine: normal cervical ROM and no pain with cervical ROM Extremities: extremities normal to inspection and strength 5/5 throughout; full ROM of extremities Skin no rashes, warm and dry Neurologic moves all extremities Motor/Sensory: no sensory deficit Psychiatric Orientation: alert and oriented x 3 Testing Laboratory Results 03/08/25 09:14 03/08/25 09:14 Urine Color Yellow 03/07/25 19:33 Urine Appearance Clear (Clear) 03/07/25 19:33 Urine pH 7.0 (4.5-7.5) 03/07/25 19:33 Ur Specific [place] 1.023 (1.000-1.030) 03/07/25 19:33 Urine Protein Negative (Negative) 03/07/25 19:33 Urine Glucose (UA) Negative (Negative) 03/07/25 19:33 Urine Ketones Negative (Negative) 03/07/25 19:33 Urine Nitrite Negative (Negative) 03/07/25 19:33 Ur Leukocyte Esterase Negative (Negative) 03/07/25 19:33
[2025-03-08] MEDS: CLINDAMYCIN 900 MG/D5W 50 ML BAG IV ONE (14:13)
[2025-03-08] MEDS ORDERED: CLINDAMYCIN/D5W 600 MG/54 ML BAG IV SCH (14:15)
[2025-03-08] MEDS: GENTAMICIN SULFATE 80 MG in DEXTROSE 5% 100 ML IV SCH (14:20)
[2025-03-08] MEDS ORDERED: DIATRIZOATE MEGLUMINE 30% 100ML VIAL INSTIL PRN (14:44)
--- NOTE | 2025-03-08 15:03 | Post Operative Brief Note ---
PG Immediate Post Op with CF Date of Surgery March 08, 2025 Pre & Post Diagnosis Operation Date: 03/08/25 10:10 Pre-Op Diagnosis: Right ureteral stone Post-Op Diagnosis: Right ureteral stone I identified the patient and participated in the time-out.: Yes Procedure Operation Date: 03/08/25 10:10 Actual Procedures p Cystoscopy, Stent Placement, Ureteroscopy, Laser Lithotripsy and Stone Treament- Right(Right) - Enrique Meraz MD Surgeon Enrique Meraz MD Broadband Technician none Estimated Blood Loss 0 Findings See Below distal right ureteral stone treated to completion, right stent carefully positioned confirmed on flouro and visually Specimens Specimen Description: none Drains Other (right ureteral stent on string) Disposition Disposition: Recovery Room
--- NOTE | 2025-03-08 15:11 | Fluoroscopy Report ---
FL retrograde includes kub CLINICAL HISTORY: RIGHT CYSTO STENT COMPARISON STUDY: None pertinent FLUOROSCOPY TIME: 18 seconds FLUOROSCOPY IMAGES: 2 EXPOSURE DOSE: 6.27 mGy FINDINGS: Fluoroscopic guidance was provided for a right to retrograde pyelogram and stent placement. IMPRESSION: Please refer to the procedural report for further evaluation based upon real time fluoros copic observation ACT 112: Negative or not required by law. Electronically signed by: Freda Escobar M.D. 03/08/2025 3:10 PM
--- NOTE | 2025-03-08 15:51 | Anesthesiology Progress Note ---
Date of Service March 08, 2025 Anesthesia Post Procedure Vital Signs Vital Signs: Temp Pulse Pulse Pulse Resp BP BP 03/08/25 15:41 36.4 C L 03/08/25 15:35 82 13 121/80 03/08/25 15:25 85 13 120/67 03/08/25 15:15 83 14 103/70 03/08/25 15:09 36.5 C 85 14 112/83 03/08/25 13:36 37.0 C 76 20 165/94 H 03/08/25 09:11 144/84 H 03/08/25 07:28 36.8 C 75 20 156/112 H 03/08/25 00:27 36.7 C 87 18 152/109 H 03/07/25 23:59 159/114 H 03/07/25 23:00 74 18 150/117 H 03/07/25 22:03 80 15 149/91 H 03/07/25 22:00 86 15 149/91 H 03/07/25 21:33 89 16 170/105 H 03/07/25 21:24 72 18 170/105 H 03/07/25 21:00 70 13 196/116 H 03/07/25 20:30 84 19 169/116 H 03/07/25 20:01 80 03/07/25 19:33 83 18 172/118 H 03/07/25 19:32 03/07/25 19:18 36.7 C 91 H 16 169/110 H BP Pulse Ox O2 Del Method O2 Flow Rate 03/08/25 15:41 03/08/25 15:35 94 Room Air 03/08/25 15:25 98 Oxymask 5 03/08/25 15:15 98 Oxymask 5 03/08/25 15:09 97 Oxymask 5 03/08/25 13:36 97 Room Air 03/08/25 09:11 03/08/25 07:28 168/115 H 97 Room Air 03/08/25 00:27 96 Room Air 03/07/25 23:59 03/07/25 23:00 95 Room Air 03/07/25 22:03 97 03/07/25 22:00 96 03/07/25 21:33 97 Room Air 03/07/25 21:24 96 03/07/25 21:00 97 03/07/25 20:30 96 03/07/25 20:01 03/07/25 19:33 96 Room Air 03/07/25 19:32 98 Room Air 03/07/25 19:18 96 Room Air Pain Intensity Right Lower Abdomen: Pain Intensity: 1 Transfer of Care Handoff Completed per policy Notes Mental Status: alert / awake / arousable Patient Amnestic to Procedure: Yes Nausea / Vomiting: adequately controlled Pain: adequately controlled Airway Patency, RR, SpO2: stable & adequate BP & HR: stable & adequate Hydration State: stable & adequate Anesthetic Complications: no major complications apparent
[2025-03-08 15:57] VITALS: RESP 17
[2025-03-08] MEDS: MoRPHine SULFATE 2 MG/ML CARP IV PRN (16:20)
[2025-03-08 16:25] VITALS: PULSE 75; O2SAT 94
[2025-03-08] MEDS: CLINDAMYCIN/D5W 900 MG/50 ML BAG IV SCH (16:30)
[2025-03-08 16:57] VITALS: BP 137/70; TEMP 98.4
--- NOTE | 2025-03-08 17:09 | Discharge Summary ---
Discharge Summary Date of Service March 08, 2025 Principal Dx & Hospital Course #1 = Principal Diagnosis (1) Right ureteral stone: (2) DRE (acute kidney injury): (3) Anxiety and depression: (4) Elevated blood pressure reading: Plan 24yo male presenting with right sided abdominal pain. Found with obstructing stone in the right distal ureter - 3mm with hydroureteronephrosis. Elevated Cr=1.58, unknown baseline #Right ureteral stone -Admit to medical -Keep NPO -LR at 125mL/hr x 2L ordered -Flomax 0.4mg po now and daily -Urine strainer -Tylenol and Morphine PRN pain -Zofran PRN nausea -PRN bowel regimen in place -Urology consultation appreciated #DRE - patient with elevated Cr=1.58, unknown baseline. -Avoid nephrotoxic agents -LR -Repeat chemistry in AM -Should be followed as an outpatient - patient reports that his blood pressure is high outpatient as well #Anxiety/Depression/Mental Health -Continue home medications - Bupropion, Vyvanse and Sertraline #Elevated blood pressure reading -Pain control as above -Continue to monitor Admission HPI Per Admitting Provider Josh Correia is a pleasant 24yo male with history of elevated blood pressure presenting with right sided abdominal pain. Patient initially presented to [facility] 2 weeks ago with right sided abdominal pain. He was diagnosed with a kidney stone and was ultimately discharged with pain medication and Flomax. He reports taking these medications - symptoms largely resolved but he would occasionally experience some intermittent discomfort. Last night he developed more severe pain in the right lower abdomen and mid abdomen. Pain constant. Intermittent nausea. Some sweats as well. Denies fever, chest pain, cough, SOB. Normal urination now with no difficulty. No additional complaints at this time. In the ER he is afebrile, HD stable ER Course: NSS Zofran Morphine Tylenol Discharge Plan Discharge Items Patient Disposition: Home - Self-Care Reason For Visit: FLANK PAIN Discharge Diagnosis: kidney stone Condition on Discharge: Good Activity: Resume your previous activity Non-emergency contact: Primary Care Provider Call non-emergency contact if: you have any medication questions Follow-up/Referrals: PCP,NO [Primary Care Provider] - Diet: Regular Addtl Attending Provider Instructions: Please call the office for an appointment on Tuesday if the Urologist Office does not reach out before. Pending Studies at Discharge: No Stand-Alone Forms: My [facility] [employer], Smoking Cessation Medications and DC Order Prescriptions: New tamsulosin 0.4 mg Capsule 0.4 mg PO QAM Qty: 30 0RF phenazopyridine [Pyridium] 200 mg tablet 200 mg PO Q8H PRN (Reason: penile pain, painful urination) Qty: 6 0RF Continued sertraline 200 mg capsule 200 mg PO DAILY bupropion HCl 75 mg tablet 75 mg PO TID Rx Instructions: administer 6 hours apart lisdexamfetamine [Vyvanse] 40 mg capsule 40 mg PO DAILY Discharge Orders: Discharge Order (Routine); Ordered 03/08/25 Ordered By: Abelardo Meyer Admission Data Admit Date/Time: 03/07/25 23:39 Attending Provider: Abelardo Meyer Admit Provider: Bonnie Medrano Primary Care Provider: PCP,NO Other Providers: Bonnie Medrano; Jorge Early Hospital Stay Data Consultations 03/07/25 23:20 ED Decision to Admit Stat 03/07/25 23:39 Consult Urology Routine Procedures Performed Operation Date: 03/08/25 10:10 Actual Procedures p Cystoscopy, Ureteroscopy, Laser Lithotripsy and Stone Treament- Right(Right) - Enrique Meraz MD s Stent Placement(Right) - Enrique Meraz MD Diagnostic Imagining Performed 03/07/25 19:32 CT abd pelvis IV con only Stat 03/08/25 FL retrograde includes kub Routine Pending Results Patient Have Any Pending Studies at Discharge: No Discharge Instructions Given to Patient (Per Discharging Provider) Please call the office for an appointment on Tuesday if the Urologist Office does not reach out before. Coding Diagnoses Right ureteral stone N20.1 DRE (acute kidney injury) N17.9 Anxiety and depression F41.9; F32.A Elevated blood pressure reading R03.0
[2025-03-08] MEDS: PHENAZOPYRIDINE HCL 200 MG TAB PO STA (17:39)
--- NOTE | 2025-03-09 10:39 | Procedure Note ---
Procedure Note Date of Service March 09, 2025 SURGEON: Dr. Meraz SEATING AND MOBILITY TECHNOLOGIST: N/A PREOPERATIVE DIAGNOSIS: right ureteral stone POSTOPERATIVE DIAGNOSIS: right ureteral stone treated to completion PROCEDURE: cystoscopy, right ureteroscopy laser lithotripsy right ureteral stent placement FINDINGS: 1. right ureteral stone fragmented to completion right ureteral stent placed curls in renal pelvis and bladder secured to string ANESTHESIA: none ESTIMATED BLOOD LOSS: N/A TUBES AND DRAINS: right ureteral stent 4.8 fr x 24 cm SPECIMENS: none COMPLICATIONS: none INDICATIONS FOR PROCEDURE: See preoperative diagnosis OPERATIVE DETAIL: The patient was prepped and draped in the usual fashion in the operating room. gentamycin and clindamycin were given. A well lubricated rigid cystoscope was inserted into the urethral meatus and advanced into the bladder. Care was taken to keep the lumen in the center of view. Cystoscopy was completed and unremarkable. The left and right ureteral orifices were identified in the orthotopic positions. The right UO appeared patent but somewhat inflamed. The cystoscope was removed and a johnston needle semi rigid ureteroscope was introduced into the right ureter without resistance. A small yellow crystalline stone was noted in the ureter and treated to completion using a 200 micron thulium laser fiber. A sensor wire was introduced with positioning confirmed on fluoroscopy. A 4.8 fr x 24 c,m ureteral stent was then placed with positioning confirmed visually and fluoroscopically floridalma string was left attached and secured to the penis. All parts of the cystoscope and all instruments were removed intact from the patient. The patient tolerated the procedure well. Please note thatI was present and directly performed the procedure. Coding Additional Codes Date of Service ([email or web address])
== END 2025-03-08 18:48 | disposition home or self-care (01) ==
LOC: 3W 19:12 → ED 19:12 → SUATTDRO 23:39 → 3W 23:57